=== PATIENT | female | born 1995 | race Two or more races ===

== ENCOUNTER 2016-11-30 20:53 | Inpatient (IN) | payer SELFPAY ==
[~2016-11-30] VITALS: Ht 152.4 cm; Wt 56.5 kg
[2016-11-30] MEDS ORDERED: IV RINGERS,LACTATED 1000ML 1,000 ML IV SCH ×2 (21:15→21:44)
[2016-11-30] MEDS ORDERED: TERBUTALINE 1 MG/ML VIAL. SQ PRN (21:45)
[2016-11-30] MEDS ORDERED: 0.9 % SODIUM CHLORIDE 10 ML DISP.SYRIN. IV PRN (21:45)
[2016-11-30] MEDS ORDERED: LIDOCAINE 1% PF 30 ML VIAL. INJ PRN (21:45)
[2016-11-30] MEDS ORDERED: ONDANSETRON PF 4 MG/2 ML VIAL. IV PRN (21:45)
[2016-11-30] MEDS ORDERED: OXYTOCIN 30 UNIT/500 ML PREMIX 500 ML IV PRN ×2 (21:45)
[2016-11-30] MEDS ORDERED: FENTANYL PF 100 MCG/2 ML VIAL. IV PRN (21:45)
[2016-11-30 22:24] LABS: HEMOGLOBIN 11.6 g/dL (12.0-15.5); RED BLOOD COUNT 3.66 x10^6/uL (3.50-5.40); WHITE BLOOD COUNT 9.4 x10^3/uL (4.0-11.0)
[2016-11-30 22:44] LABS: CALCIUM 9.3 mg/dL (8.5-10.1); CREATININE 0.6 mg/dL (0.6-1.0); GFR 126.2
[2016-11-30 22:49] LABS: ALBUMIN/GLOBULIN RATIO 0.8 (1.0-1.7); TOTAL BILIRUBIN 0.3 mg/dL (0.2-1.0); TOTAL PROTEIN 6.7 g/dL (6.4-8.2)
[2016-11-30 22:53] VITALS: BP 129/90
[2016-12-01] MEDS ORDERED: L&D EPIDURAL CASSETTE 100 ML EP ONE (06:19)
[2016-12-01] MEDS ORDERED: ROPIVacaine 0.2% IN 0.9%NACL PF 40 MG/20 ML DISP.SYRIN. ONE (06:19)
--- NOTE | 2016-12-01 07:19 | PDOC1 ---
OB - History Hx of Present Care: Good Care Ultrasounds: Normal mid trimester US Obstetrical Complications: None Medical Complications: None Past Family/Social History * Past Medical, Surgical, Family and Obstetric Histories reviewed from chart. Rubella: Immune RPR/VDRL: Negative GBS Status: Negative HBsAG: Negative OB - Chief Complaint & HPI Date of Admission: Date of Admission: Nov 30, 2016 at 20:53 Chief Complaint/History : 1 Para: 0 EGA: 39 Reason for admission: active labor, rupture of membranes Admission Nurse Assessment Rev: Yes Problems: OB - Admission Exam Physical Exam Vitals: VS - Last 72 Hours, by Label Date Time Temp Pulse Resp B/P Pulse Ox O2 Delivery O2 Flow Rate FiO2 12/01/16 06:24 18 Room Air 12/01/16 05:21 18 Room Air 11/30/16 22:53 98.6 120 18 129/90 Room Air 98.6 HEENT: Normal Heart: Regular Rate Lungs: Clear Abdomen: Gravid, Non tender, Soft Extremities: Edema Reflexes: Normal Cervical Dilatation: 2cm Effacement: 75% Station: -2 Membranes: Ruptured Amniotic Fluid: Clear Heart Rate: Normal Accelerations: Accelerations Present Decelerations: No decelerations Contractions on Admission: < 5 Minutes Apart Intensity: Moderate Text A: 39 wks IUP SROM P: Admit for labor management. RODRÍGUEZ GARCÍA Jr, MD Dec 01, 2016 07:18
--- NOTE | 2016-12-01 09:39 | PDOC ---
VAGINAL DELIVERY DATE DATE: 12/01/16 TIME: 09:38 : 1 Para: 1 EGA: 39 VAGINAL DELIVERY: VTX VACCUM ASSISTED: No PLACENTA: Spontaneous 8/9 SEX: Female WEIGHT Weight [pending ] Nuchal Cord: No Amniotic Fluid: Clear PAIN: Epidural EPISIOTOMY: No EXTENSION: Yes (2nd degree midline laceration) REPAIRED WITH 2-0 vicryl EBL 300 ml COMPLICATIONS none CONDITION pt. stable Signs of Intrauterine Infectio: None Shoulder Dystocia: No Problems: RODRÍGUEZ GARCÍA Jr, MD Dec 01, 2016 09:39
[2016-12-01] MEDS ORDERED: PHENYLEPH/MINERAL OIL/PETROLAT RECTAL OINTMENT 28GM TUBE. RC PRN ×2 (09:45)
[2016-12-01] MEDS ORDERED: DIPHENHYDRAMINE HCL 25 MG CAPSULE PO PRN ×2 (09:45)
[2016-12-01] MEDS ORDERED: DOCUSATE SODIUM 100 MG CAPSULE PO PRN ×2 (09:45)
[2016-12-01] MEDS ORDERED: MAGNESIUM HYDROXIDE 2,400 MG/30 ML ORAL.SUSP. PO PRN ×2 (09:45)
[2016-12-01] MEDS ORDERED: MAG HYDROX/ALUMINUM HYD/SIMETH 30 ML ORAL.SUSP PO PRN ×2 (09:45)
[2016-12-01] MEDS ORDERED: OXYTOCIN 30 UNIT/500 ML PREMIX 500 ML IV PRN ×2 (09:45)
[2016-12-01] MEDS ORDERED: BENZOCAINE 20% TOPICAL AEROSOL SPRAY 57GM CAN. TP PRN ×2 (09:45)
[2016-12-01] MEDS ORDERED: 0.9 % SODIUM CHLORIDE 10 ML DISP.SYRIN. IV PRN ×2 (09:45)
[2016-12-01] MEDS ORDERED: ACETAMINOPHEN 325 MG TABLET. PO PRN ×2 (09:45)
[2016-12-01] MEDS ORDERED: OXYCODONE/APAP 5/325 TABLET. PO PRN (09:45)
[2016-12-01] MEDS ORDERED: HYDROCORTISONE 1% TOPICAL OINTMENT 30GM TUBE. TP PRN ×2 (09:45)
[2016-12-01] MEDS ORDERED: MMR per PROTOCOL. MC PRN ×2 (09:45)
[2016-12-01] MEDS ORDERED: IBUPROFEN 800 MG TABLET. PO PRN (09:45)
[2016-12-01] MEDS ORDERED: ZOLPIDEM 5 MG TABLET. PO PRN ×2 (09:45)
[2016-12-01] MEDS ORDERED: SIMETHICONE 80 MG TAB.CHEW PO PRN ×2 (09:45)
[2016-12-01] MEDS: IBUPROFEN 800 MG TABLET. PO PRN ×2 (11:33→23:21)
[2016-12-01 14:15] VITALS: BP 118/74
[2016-12-01 15:15] VITALS: BP 108/69
[2016-12-01] MEDS: OXYCODONE/APAP 5/325 TABLET. PO PRN ×2 (17:30→23:22)
[2016-12-01 17:33] VITALS: BP 115/70
[2016-12-01 20:59] VITALS: BP 123/75
[2016-12-02 01:00] VITALS: BP 125/81
[2016-12-02 04:47] LABS: BASO % 0 % (0-3); EOS % 0 % (0-3); HEMATOCRIT 26.4 % (36.0-47.0); HEMOGLOBIN 8.9 g/dL (12.0-15.5); LYMPH # 2.6 x10^3/uL (1.0-4.8); LYMPH % 14 % (24-48); MEAN CORPUSCULAR HEMOGLOBIN 31 pg (25-35); MEAN CORPUSCULAR HGB CONC 34 g/dL (31-37); MEAN CORPUSCULAR VOLUME 94 fL (79-100); MONO % 5 % (0-9); NEUT % 81 % (31-73); PLATELET COUNT 94 x10^3/uL (140-400); RED BLOOD COUNT 2.82 x10^6/uL (3.50-5.40); RED CELL DISTRIBUTION WIDTH 14.1 % (11.5-14.5); WHITE BLOOD COUNT 18.7 x10^3/uL (4.0-11.0)
[2016-12-02 05:40] VITALS: BP 114/74
[2016-12-02] MEDS ORDERED: FERROUS SULFATE 325 MG TABLET PO SCH (08:00)
[2016-12-02] MEDS: FERROUS SULFATE 325 MG TABLET PO SCH ×2 (08:41→16:45)
[2016-12-02] MEDS: OXYCODONE/APAP 5/325 TABLET. PO PRN (08:41)
[2016-12-02 08:46] VITALS: BP 121/79
[2016-12-02 09:01] LABS: % BASOS 1 % (0-3)
[2016-12-02 09:02] LABS: PLT ESTIMATE DECREASED (ADEQUATE)
[2016-12-02 13:05] VITALS: BP 114/70
--- NOTE | 2016-12-02 14:38 | PDOC ---
OB Progress Note Date of Service 12/02/16 Time of Evaluation 1435 Notes Pt. feeling well. Breast feeding. Pain controlled. Lochia minimal. Lab Laboratory Tests Test 11/30/16 22:05 12/02/16 03:40 White Blood Count 9.4x10^3/uL (4.0-11.0) 18.7x10^3/uL (4.0-11.0) Red Blood Count 3.66x10^6/uL (3.50-5.40) 2.82x10^6/uL (3.50-5.40) Hemoglobin 11.6g/dL (12.0-15.5) 8.9g/dL (12.0-15.5) Hematocrit 34.0% (36.0-47.0) 26.4% (36.0-47.0) Mean Corpuscular Volume 93fL (79-100) 94fL (79-100) Mean Corpuscular Hemoglobin 32pg (25-35) 31pg (25-35) Mean Corpuscular Hemoglobin Concent 34g/dL (31-37) 34g/dL (31-37) Red Cell Distribution Width 14.0% (11.5-14.5) 14.1% (11.5-14.5) Platelet Count 122x10^3/uL (140-400) 94x10^3/uL (140-400) Sodium Level 138mmol/L (136-145) Potassium Level 4.0mmol/L (3.5-5.1) Chloride Level 102mmol/L (98-107) Carbon Dioxide Level 24mmol/L (21-32) Anion Gap 12 (6-14) Blood Urea Nitrogen 11mg/dL (7-20) Creatinine 0.6mg/dL (0.6-1.0) Estimated GFR (Cockcroft-Gault) 126.2 BUN/Creatinine Ratio 18 (6-20) Glucose Level 88mg/dL (70-99) Calcium Level 9.3mg/dL (8.5-10.1) Total Bilirubin 0.3mg/dL (0.2-1.0) Aspartate Amino Transf (AST/SGOT) 17U/L (15-37) Alanine Aminotransferase (ALT/SGPT) 23U/L (14-59) Alkaline Phosphatase 179U/L (46-116) Total Protein 6.7g/dL (6.4-8.2) Albumin 3.0g/dL (3.4-5.0) Albumin/Globulin Ratio 0.8 (1.0-1.7) Neutrophils (%) (Auto) 81% (31-73) Lymphocytes (%) (Auto) 14% (24-48) Monocytes (%) (Auto) 5% (0-9) Eosinophils (%) (Auto) 0% (0-3) Basophils (%) (Auto) 0% (0-3) Neutrophils # (Auto) 15.1x10^3uL (1.8-7.7) Lymphocytes # (Auto) 2.6x10^3/uL (1.0-4.8) Monocytes # (Auto) 1.0x10^3/uL (0.0-1.1) Eosinophils # (Auto) 0.0x10^3/uL (0.0-0.7) Basophils # (Auto) 0.0x10^3/uL (0.0-0.2) Segmented Neutrophils % 50% (35-66) Band Neutrophils % 32% (0-9) Lymphocytes % 10% (24-48) Monocytes % 7% (0-10) Basophils % 1% (0-3) Platelet Estimate Decreased (ADEQUATE) Laboratory Tests Test 12/02/16 03:40 White Blood Count 18.7x10^3/uL (4.0-11.0) Red Blood Count 2.82x10^6/uL (3.50-5.40) Hemoglobin 8.9g/dL (12.0-15.5) Hematocrit 26.4% (36.0-47.0) Mean Corpuscular Volume 94fL (79-100) Mean Corpuscular Hemoglobin 31pg (25-35) Mean Corpuscular Hemoglobin Concent 34g/dL (31-37) Red Cell Distribution Width 14.1% (11.5-14.5) Platelet Count 94x10^3/uL (140-400) Neutrophils (%) (Auto) 81% (31-73) Lymphocytes (%) (Auto) 14% (24-48) Monocytes (%) (Auto) 5% (0-9) Eosinophils (%) (Auto) 0% (0-3) Basophils (%) (Auto) 0% (0-3) Neutrophils # (Auto) 15.1x10^3uL (1.8-7.7) Lymphocytes # (Auto) 2.6x10^3/uL (1.0-4.8) Monocytes # (Auto) 1.0x10^3/uL (0.0-1.1) Eosinophils # (Auto) 0.0x10^3/uL (0.0-0.7) Basophils # (Auto) 0.0x10^3/uL (0.0-0.2) Segmented Neutrophils % 50% (35-66) Band Neutrophils % 32% (0-9) Lymphocytes % 10% (24-48) Monocytes % 7% (0-10) Basophils % 1% (0-3) Platelet Estimate Decreased (ADEQUATE) Medications Current Medications Lactated Ringer's (Iv Lactated Ringers) 1,000 ml @ 125 mls/hr Q8H IV Last administered on 11/30/16 22:11; Start 11/30/16 at 21:15; Stop 12/01/16 at 20:14; Status DC Sodium Chloride 3 ml 3 ml QSHIFT PRN IV AFTER MEDS AND BLOOD DRAWS Last administered on 12/01/16 11:34; Start 11/30/16 at 21:45 Lactated Ringer's (Iv Lactated Ringers) 1,000 ml @ 125 mls/hr Q8H IV Last administered on 12/01/16 05:21; Start 11/30/16 at 21:44; Stop 12/01/16 at 20:14; Status DC Fentanyl Citrate (Fentanyl 2ml Vial) 100 mcg PRN Q30MIN PRN IV Severe pain Last administered on 12/01/16 05:21; Start 11/30/16 at 21:45 Ondansetron HCl (Zofran) 4 mg PRN Q4HRS PRN IV NAUSEA/VOMITING; Start 11/30/16 at 21:45 Terbutaline Sulfate (Brethine) 0.25 mg 1X PRN PRN SQ SEE COMMENTS; Start at 21:45; Stop 12/01/16 at 21:44; Status DC Lidocaine HCl 30 ml 30 ml 1X PRN PRN INJ SEE COMMENTS; Start 11/30/16 at 21:45; Stop 12/02/16 at 21:44 Oxytocin/Sodium Chloride 500 ml @ 0 mls/hr CONT PRN IV SEE I/O RECORD; Start at 21:45 Oxytocin/Sodium Chloride (Oxytocin Premix Infusion) 500 ml @ 0 mls/hr CONT PRN PRN IV Post delivery bleeding; Start 11/30/16 at 21:45 Ibuprofen 800 mg 800 mg PRN Q6HRS PRN PO MODERATE PAIN Last administered on 12/01 23:21; Start 11/30/16 at 21:45 Ropivacaine/ Fentanyl/NS (Ihiwrdzm-Hxatt-RZ 3 Mcg-0.1%) 100 ml @ As Directed STK-MED ONCE EP Last administered on 12/01/16 06:24; Start 12/01/16 at 06:19; Stop 12/01/16 at 06:20; Status DC Ropivacaine 40 mg STK-MED ONCE .ROUTE Last administered on 12/01/16 06:25; Start 12/01/16 at 06:19; Stop 12/01/16 at 06:20; Status DC Sodium Chloride 10 ml 10 ml QSHIFT PRN IV AFTER MEDS AND BLOOD DRAWS; Start 12/01/16 at 09:45 Oxytocin/Sodium Chloride (Oxytocin Premix Infusion) 500 ml @ 62.5 mls/hr CONT PRN IV SEE I/O RECORD; Start 12/01/16 at 09:45; Stop 12/01/16 at 17:44; Status DC Acetaminophen (Tylenol) 650 mg PRN Q6HRS PRN PO MILD PAIN / TEMP; Start at 09:45 Ibuprofen (Motrin) 800 mg PRN Q8HRS PRN PO INFLAMMATION/PAIN PREVENTION; Start 12/01/16 at 09:45 Docusate Sodium (Colace) 100 mg PRN BID PRN PO CONSTIPATION; Start 12/01/16 at 09:45 Magnesium Hydroxide (Milk Of Magnesia) 2,400 mg PRN DAILY PRN PO CONSTIPATION; Start 12/01/16 at 09:45 Al Hydrox/Mg Hydrox/Simethicone (Mylanta Plus Xs) 30 ml PRN Q4HRS PRN PO HEARTBURN / GAS; Start 12/01/16 at 09:45 Simethicone (Gas-X) 80 mg PRN AFTMEALHC PRN PO GAS / BLOATING; Start 12/01/16 at 09:45 Diphenhydramine HCl (Benadryl) 25 mg PRN Q6HRS PRN PO ITCHING; Start 12/01/16 at 09:45 Benzocaine (Americaine) 1 spray PRN QID PRN TP TOPICAL PAIN Last administered on 12/01/16 11:33; Start 12/01/16 at 09:45 Phenyleph/Shark Oil/Min Oil/Petrol (Preparation H) 1 emre PRN QID PRN RC RECTAL PAIN; Start 12/01/16 at 09:45 Hydrocortisone (Cortaid) 1 emre PRN QID PRN TP PERINEAL PAIN; Start 12/01/16 at 09:45 Ferrous Sulfate (Feosol) 325 mg BIDWMEALS PO Last administered on 12/02/16 08: 41; Start 12/02/16 at 08:00 Zolpidem Tartrate (Ambien) 5 mg PRN QHS PRN PO INSOMNIA, MAY REPEAT X1; Start 12/01/16 at 09:45 Info (Do NOT chart on this placeholder) 1 ea 1X PRN PRN MC SEE COMMENTS; Start 12/01/16 at 09:45 Info (Do NOT chart on this placeholder) 1 ea 1X PRN PRN MC SEE COMMENTS; Start 12/01/16 at 09:45 Oxycodone/ Acetaminophen (Percocet 5/325) 2 tab PRN Q4HRS PRN PO MODERATE PAIN , SEVERE PAIN Last administered on 12/02/16 08:41; Start 12/01/16 at 09:45 Sodium Chloride 10 ml 10 ml QSHIFT PRN IV AFTER MEDS AND BLOOD DRAWS; Start 12/01/16 at 09:45; Status UNV Oxytocin/Sodium Chloride (Oxytocin Premix Infusion) 500 ml @ 62.5 mls/hr CONT PRN IV SEE I/O RECORD; Start 12/01/16 at 09:45; Stop 12/01/16 at 17:44; Status UNV Acetaminophen (Tylenol) 650 mg PRN Q6HRS PRN PO MILD PAIN / TEMP; Start at 09:45; Status UNV Ibuprofen (Motrin) 800 mg PRN Q8HRS PRN PO INFLAMMATION/PAIN PREVENTION; Start 12/01/16 at 09:45; Status UNV Docusate Sodium (Colace) 100 mg PRN BID PRN PO CONSTIPATION; Start 12/01/16 at 09:45; Status UNV Magnesium Hydroxide (Milk Of Magnesia) 2,400 mg PRN DAILY PRN PO CONSTIPATION; Start 12/01/16 at 09:45; Status UNV Al Hydrox/Mg Hydrox/Simethicone (Mylanta Plus Xs) 30 ml PRN Q4HRS PRN PO HEARTBURN / GAS; Start 12/01/16 at 09:45; Status UNV Simethicone (Gas-X) 80 mg PRN AFTMEALHC PRN PO GAS / BLOATING; Start 12/01/16 at 09:45; Status UNV Diphenhydramine HCl (Benadryl) 25 mg PRN Q6HRS PRN PO ITCHING; Start 12/01/16 at 09:45; Status UNV Benzocaine (Americaine) 1 spray PRN QID PRN TP TOPICAL PAIN; Start 12/01/16 at 09:45; Status UNV Phenyleph/Shark Oil/Min Oil/Petrol (Preparation H) 1 emre PRN QID PRN RC RECTAL PAIN; Start 12/01/16 at 09:45; Status UNV Hydrocortisone (Cortaid) 1 emre PRN QID PRN TP PERINEAL PAIN; Start 12/01/16 at 09:45; Status UNV Ferrous Sulfate (Feosol) 325 mg BIDWMEALS PO ; Start 12/02/16 at 08:00; Status UNV Zolpidem Tartrate (Ambien) 5 mg PRN QHS PRN PO INSOMNIA, MAY REPEAT X1; Start 12/01/16 at 09:45; Status UNV Info (Do NOT chart on this placeholder) 1 ea 1X PRN PRN MC SEE COMMENTS; Start 12/01/16 at 09:45; Status UNV Info (Do NOT chart on this placeholder) 1 ea 1X PRN PRN MC SEE COMMENTS; Start 12/01/16 at 09:45; Status UNV Oxycodone/ Acetaminophen (Percocet 5/325) 2 tab PRN Q4HRS PRN PO MODERATE PAIN , SEVERE PAIN; Start 12/01/16 at 09:45; Status UNV Exam Abd: soft, non tender, fundus firm Assessment PPD#1 s/p Plan of Care: Continue current Tx, Mgmt RODRÍGUEZ GARCÍA Jr, MD Dec 02, 2016 14:38
[2016-12-02] MEDS: IBUPROFEN 800 MG TABLET. PO PRN (16:45)
[2016-12-02 18:10] VITALS: BP 119/78
[2016-12-02 21:00] VITALS: BP 116/84
[2016-12-03] MEDS: IBUPROFEN 800 MG TABLET. PO PRN ×2 (01:28→13:39)
[2016-12-03 02:30] VITALS: BP 114/70
[2016-12-03] MEDS: OXYCODONE/APAP 5/325 TABLET. PO PRN (06:02)
[2016-12-03 06:11] LABS: BASO # 0.1 x10^3/uL (0.0-0.2); BASO % 0 % (0-3); EOS % 1 % (0-3); HEMATOCRIT 29.4 % (36.0-47.0); HEMOGLOBIN 9.8 g/dL (12.0-15.5); LYMPH # 2.9 x10^3/uL (1.0-4.8); LYMPH % 21 % (24-48); MEAN CORPUSCULAR HEMOGLOBIN 31 pg (25-35); MEAN CORPUSCULAR HGB CONC 33 g/dL (31-37); MEAN CORPUSCULAR VOLUME 94 fL (79-100); MONO % 5 % (0-9); NEUT % 73 % (31-73); PLATELET COUNT 115 x10^3/uL (140-400); RED BLOOD COUNT 3.13 x10^6/uL (3.50-5.40); RED CELL DISTRIBUTION WIDTH 14.3 % (11.5-14.5); WHITE BLOOD COUNT 13.7 x10^3/uL (4.0-11.0)
[2016-12-03] MEDS: FERROUS SULFATE 325 MG TABLET PO SCH (08:07)
[2016-12-03 10:43] VITALS: BP 111/59
--- NOTE | 2016-12-03 11:50 | DISCH ---
DISCHARGE INSTRUCTIONS Condition on Discharge Condition on Discharge: Stable Activity After Discharge Activity Instructions for Disc: Activity as tolerated Lifting Instructions after Dis: No heavy lifting Driving Instructions after Dis: Do not drive Diet after Discharge Diet after Discharge: Regular Contacting the [facility]Genaro after DC Call your doctor for: Concerns you may have Follow-Up Follow up with: Dr. Eaton or [place] in 6 wks RODRÍGUEZ EATON Jr, MD Dec 03, 2016 11:50
--- NOTE | 2016-12-03 11:50 | PDOC ---
OB Progress Note Date of Service 12/03/16 Time of Evaluation 1150 Notes Pt. feeling well. No complaints. Lab Laboratory Tests Test 12/02/16 03:40 12/03/16 06:00 White Blood Count 18.7x10^3/uL (4.0-11.0) 13.7x10^3/uL (4.0-11.0) Red Blood Count 2.82x10^6/uL (3.50-5.40) 3.13x10^6/uL (3.50-5.40) Hemoglobin 8.9g/dL (12.0-15.5) 9.8g/dL (12.0-15.5) Hematocrit 26.4% (36.0-47.0) 29.4% (36.0-47.0) Mean Corpuscular Volume 94fL (79-100) 94fL (79-100) Mean Corpuscular Hemoglobin 31pg (25-35) 31pg (25-35) Mean Corpuscular Hemoglobin Concent 34g/dL (31-37) 33g/dL (31-37) Red Cell Distribution Width 14.1% (11.5-14.5) 14.3% (11.5-14.5) Platelet Count 94x10^3/uL (140-400) 115x10^3/uL (140-400) Neutrophils (%) (Auto) 81% (31-73) 73% (31-73) Lymphocytes (%) (Auto) 14% (24-48) 21% (24-48) Monocytes (%) (Auto) 5% (0-9) 5% (0-9) Eosinophils (%) (Auto) 0% (0-3) 1% (0-3) Basophils (%) (Auto) 0% (0-3) 0% (0-3) Neutrophils # (Auto) 15.1x10^3uL (1.8-7.7) 10.0x10^3uL (1.8-7.7) Lymphocytes # (Auto) 2.6x10^3/uL (1.0-4.8) 2.9x10^3/uL (1.0-4.8) Monocytes # (Auto) 1.0x10^3/uL (0.0-1.1) 0.6x10^3/uL (0.0-1.1) Eosinophils # (Auto) 0.0x10^3/uL (0.0-0.7) 0.1x10^3/uL (0.0-0.7) Basophils # (Auto) 0.0x10^3/uL (0.0-0.2) 0.1x10^3/uL (0.0-0.2) Segmented Neutrophils % 50% (35-66) Band Neutrophils % 32% (0-9) Lymphocytes % 10% (24-48) Monocytes % 7% (0-10) Basophils % 1% (0-3) Platelet Estimate Decreased (ADEQUATE) Laboratory Tests Test 12/03/16 06:00 White Blood Count 13.7x10^3/uL (4.0-11.0) Red Blood Count 3.13x10^6/uL (3.50-5.40) Hemoglobin 9.8g/dL (12.0-15.5) Hematocrit 29.4% (36.0-47.0) Mean Corpuscular Volume 94fL (79-100) Mean Corpuscular Hemoglobin 31pg (25-35) Mean Corpuscular Hemoglobin Concent 33g/dL (31-37) Red Cell Distribution Width 14.3% (11.5-14.5) Platelet Count 115x10^3/uL (140-400) Neutrophils (%) (Auto) 73% (31-73) Lymphocytes (%) (Auto) 21% (24-48) Monocytes (%) (Auto) 5% (0-9) Eosinophils (%) (Auto) 1% (0-3) Basophils (%) (Auto) 0% (0-3) Neutrophils # (Auto) 10.0x10^3uL (1.8-7.7) Lymphocytes # (Auto) 2.9x10^3/uL (1.0-4.8) Monocytes # (Auto) 0.6x10^3/uL (0.0-1.1) Eosinophils # (Auto) 0.1x10^3/uL (0.0-0.7) Basophils # (Auto) 0.1x10^3/uL (0.0-0.2) Medications Current Medications Lactated Ringer's (Iv Lactated Ringers) 1,000 ml @ 125 mls/hr Q8H IV Last administered on 11/30/16 22:11; Start 11/30/16 at 21:15; Stop 12/01/16 at 20:14; Status DC Sodium Chloride 3 ml 3 ml QSHIFT PRN IV AFTER MEDS AND BLOOD DRAWS Last administered on 12/01/16 11:34; Start 11/30/16 at 21:45; Stop 12/02/16 at 23:26; Status DC Lactated Ringer's (Iv Lactated Ringers) 1,000 ml @ 125 mls/hr Q8H IV Last administered on 12/01/16 05:21; Start 11/30/16 at 21:44; Stop 12/01/16 at 20:14; Status DC Fentanyl Citrate (Fentanyl 2ml Vial) 100 mcg PRN Q30MIN PRN IV Severe pain Last administered on 12/01/16 05:21; Start 11/30/16 at 21:45; Stop 12/02/16 at 23: 26; Status DC Ondansetron HCl (Zofran) 4 mg PRN Q4HRS PRN IV NAUSEA/VOMITING; Start 11/30/16 at 21:45; Stop 12/02/16 at 23:26; Status DC Terbutaline Sulfate (Brethine) 0.25 mg 1X PRN PRN SQ SEE COMMENTS; Start at 21:45; Stop 12/01/16 at 21:44; Status DC Lidocaine HCl 30 ml 30 ml 1X PRN PRN INJ SEE COMMENTS; Start 11/30/16 at 21:45; Stop 12/02/16 at 21:44; Status DC Oxytocin/Sodium Chloride 500 ml @ 0 mls/hr CONT PRN IV SEE I/O RECORD; Start at 21:45; Stop 12/02/16 at 23:26; Status DC Oxytocin/Sodium Chloride (Oxytocin Premix Infusion) 500 ml @ 0 mls/hr CONT PRN PRN IV Post delivery bleeding; Start 11/30/16 at 21:45; Stop 12/02/16 at 23:26; Status DC Ibuprofen 800 mg 800 mg PRN Q6HRS PRN PO MODERATE PAIN Last administered on 12/02 16:45; Start 11/30/16 at 21:45; Stop 12/02/16 at 23:26; Status DC Ropivacaine/ Fentanyl/NS (Bqkyiner-Unpru-MW 3 Mcg-0.1%) 100 ml @ As Directed STK-MED ONCE EP Last administered on 12/01/16 06:24; Start 12/01/16 at 06:19; Stop 12/01/16 at 06:20; Status DC Ropivacaine 40 mg STK-MED ONCE .ROUTE Last administered on 12/01/16 06:25; Start 12/01/16 at 06:19; Stop 12/01/16 at 06:20; Status DC Sodium Chloride 10 ml 10 ml QSHIFT PRN IV AFTER MEDS AND BLOOD DRAWS; Start 12/01/16 at 09:45; Stop 12/02/16 at 23:26; Status DC Oxytocin/Sodium Chloride (Oxytocin Premix Infusion) 500 ml @ 62.5 mls/hr CONT PRN IV SEE I/O RECORD; Start 12/01/16 at 09:45; Stop 12/01/16 at 17:44; Status DC Acetaminophen (Tylenol) 650 mg PRN Q6HRS PRN PO MILD PAIN / TEMP; Start at 09:45 Ibuprofen (Motrin) 800 mg PRN Q8HRS PRN PO INFLAMMATION/PAIN PREVENTION Last administered on 12/03/16 01:28; Start 12/01/16 at 09:45 Docusate Sodium (Colace) 100 mg PRN BID PRN PO CONSTIPATION Last administered on 12/03/16 08:07; Start 12/01/16 at 09:45 Magnesium Hydroxide (Milk Of Magnesia) 2,400 mg PRN DAILY PRN PO CONSTIPATION; Start 12/01/16 at 09:45 Al Hydrox/Mg Hydrox/Simethicone (Mylanta Plus Xs) 30 ml PRN Q4HRS PRN PO HEARTBURN / GAS; Start 12/01/16 at 09:45 Simethicone (Gas-X) 80 mg PRN AFTMEALHC PRN PO GAS / BLOATING; Start 12/01/16 at 09:45 Diphenhydramine HCl (Benadryl) 25 mg PRN Q6HRS PRN PO ITCHING; Start 12/01/16 at 09:45 Benzocaine (Americaine) 1 spray PRN QID PRN TP TOPICAL PAIN Last administered on 12/01/16 11:33; Start 12/01/16 at 09:45 Phenyleph/Shark Oil/Min Oil/Petrol (Preparation H) 1 emre PRN QID PRN RC RECTAL PAIN; Start 12/01/16 at 09:45 Hydrocortisone (Cortaid) 1 emre PRN QID PRN TP PERINEAL PAIN; Start 12/01/16 at 09:45 Ferrous Sulfate (Feosol) 325 mg BIDWMEALS PO Last administered on 12/03/16 08: 07; Start 12/02/16 at 08:00 Zolpidem Tartrate (Ambien) 5 mg PRN QHS PRN PO INSOMNIA, MAY REPEAT X1; Start 12/01/16 at 09:45 Info (Do NOT chart on this placeholder) 1 ea 1X PRN PRN MC SEE COMMENTS; Start 12/01/16 at 09:45; Stop 12/02/16 at 23:26; Status DC Info (Do NOT chart on this placeholder) 1 ea 1X PRN PRN MC SEE COMMENTS; Start 12/01/16 at 09:45; Stop 12/02/16 at 23:26; Status DC Oxycodone/ Acetaminophen (Percocet 5/325) 2 tab PRN Q4HRS PRN PO MODERATE PAIN , SEVERE PAIN Last administered on 12/03/16 06:02; Start 12/01/16 at 09:45 Sodium Chloride 10 ml 10 ml QSHIFT PRN IV AFTER MEDS AND BLOOD DRAWS; Start 12/01/16 at 09:45; Status UNV Oxytocin/Sodium Chloride (Oxytocin Premix Infusion) 500 ml @ 62.5 mls/hr CONT PRN IV SEE I/O RECORD; Start 12/01/16 at 09:45; Stop 12/01/16 at 17:44; Status UNV Acetaminophen (Tylenol) 650 mg PRN Q6HRS PRN PO MILD PAIN / TEMP; Start at 09:45; Status UNV Ibuprofen (Motrin) 800 mg PRN Q8HRS PRN PO INFLAMMATION/PAIN PREVENTION; Start 12/01/16 at 09:45; Status UNV Docusate Sodium (Colace) 100 mg PRN BID PRN PO CONSTIPATION; Start 12/01/16 at 09:45; Status UNV Magnesium Hydroxide (Milk Of Magnesia) 2,400 mg PRN DAILY PRN PO CONSTIPATION; Start 12/01/16 at 09:45; Status UNV Al Hydrox/Mg Hydrox/Simethicone (Mylanta Plus Xs) 30 ml PRN Q4HRS PRN PO HEARTBURN / GAS; Start 12/01/16 at 09:45; Status UNV Simethicone (Gas-X) 80 mg PRN AFTMEALHC PRN PO GAS / BLOATING; Start 12/01/16 at 09:45; Status UNV Diphenhydramine HCl (Benadryl) 25 mg PRN Q6HRS PRN PO ITCHING; Start 12/01/16 at 09:45; Status UNV Benzocaine (Americaine) 1 spray PRN QID PRN TP TOPICAL PAIN; Start 12/01/16 at 09:45; Status UNV Phenyleph/Shark Oil/Min Oil/Petrol (Preparation H) 1 emre PRN QID PRN RC RECTAL PAIN; Start 12/01/16 at 09:45; Status UNV Hydrocortisone (Cortaid) 1 emre PRN QID PRN TP PERINEAL PAIN; Start 12/01/16 at 09:45; Status UNV Ferrous Sulfate (Feosol) 325 mg BIDWMEALS PO ; Start 12/02/16 at 08:00; Status UNV Zolpidem Tartrate (Ambien) 5 mg PRN QHS PRN PO INSOMNIA, MAY REPEAT X1; Start 12/01/16 at 09:45; Status UNV Info (Do NOT chart on this placeholder) 1 ea 1X PRN PRN MC SEE COMMENTS; Start 12/01/16 at 09:45; Status UNV Info (Do NOT chart on this placeholder) 1 ea 1X PRN PRN MC SEE COMMENTS; Start 12/01/16 at 09:45; Status UNV Oxycodone/ Acetaminophen (Percocet 5/325) 2 tab PRN Q4HRS PRN PO MODERATE PAIN , SEVERE PAIN; Start 12/01/16 at 09:45; Status UNV Exam Abd: soft, non tender, fundus firm Assessment PPD#2 s/p Plan of Care: See new orders (D/c home.) RODRÍGUEZ GARCÍA Jr, MD Dec 03, 2016 11:50
[2016-12-03] MEDS ORDERED: IBUP-1060 PO (11:51)
[2016-12-03 14:00] VITALS: BP 120/82
== END 2016-12-03 14:15 | disposition home or self-care (01) | DRG 775 ==
LOC: 3 SO LND 20:53 → OBSVTOIN 20:53 → 3 SO LND 21:48
PROVIDERS: ADMIT Obstetrics & Gynecology; ATTEND Obstetrics & Gynecology
PROC: 10E0XZZ Delivery of Products of Conception, External Approach (ICD-10-PCS; principal; 2016-12-01)
PROC: 0KQM0ZZ Repair Perineum Muscle, Open Approach (ICD-10-PCS; 2016-12-01)
PROC: 3E0S3CZ (ICD-10-PCS; 2016-12-01)
PROC: 00HU33Z Insertion of Infusion Device into Spinal Canal, Percutaneous Approach (ICD-10-PCS; 2016-12-01)
DX: O70.1 Second degree perineal laceration during delivery (principal); Z37.0 Single live birth; Z3A.39 39 weeks gestation of pregnancy
CPT/HCPCS: 36415; 80053; 85007; 85027; 86593; 86850; 86900; 86901; G0378; J2795; J3010; J7120